=== PATIENT | male | born 1965 | race Caucasian/White ===

== ENCOUNTER 2016-05-20 21:18 | Observation (INO) ==
--- NOTE | 2016-05-20 21:42 | Emergency Department Note ---
ITrang Sierra, am scribing for, and in the presence of, Ivy Paul DO 21: 41. IHumberto Debra, DO, personally performed the services described in this documentation, ascribed by Shawnee Costello in my presence, and it is both accurate and complete . Arrival - Arrival Chief Complaint: Blood Pressure Stated Complaint: BRADYCARDIA, HYPOTENSION ED Nursing Triage Note: PT ARRIVES EMS FROM HOME, CAME IN FROM SHOPPING BECAME LIGHTHEADED, N/V, DIAPHORETIC. UPON EMS ARRIVAL HE WAS BRADYCARDIC AND HYPOTENSIVE. PT GIVEN ATROPINE 0.5 IV PER EMS AND VS ARE NOW WNL. PT DENIES CP OR ANY SYPTOM AT THE MOMENT, HAS NO HX/NO MEDS/NO DR. Mode of Arrival: Stretcher Limitations: No Limitations Source: Patient Time Seen by Provider: 05/20/16 21:34 - History of Present Illness HPI Narrative: Pt is a 51 y/o male that arrived at the ED via EMS with c/o nausea and diaphoretic that began earlier today. Pt states when he came in from hunting this morning he became really cold. He reports when he returned home he went to lay down and became nauseas and extremely cold. Pt states he tried 2 blankets to warm him up and standing by the heater but broke out in a cold sweat. Pt denies pain or flu sxs. He also reports he was fine yesterday. 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 Pt was bradycardic, hypotensive, and incompetent of urine when EMS arrived at pt's home. No other complaints/pain in ED. Onset (ago): hour(s) Consistency: constant Severity: mild Severity scale (1-10): 3 Review of System - Review of System 12 point system: reviewed and no additional remarkable complaints except as stated - Review of System Constitutional: Present: chills, diaphoresis Respiratory: Absent: cough Cardiovascular: Absent: chest pain Gastrointestinal: Present: nausea. Absent: abdominal pain Musculoskeletal: Absent: arm pain, back pain, leg pain, neck pain Skin: Absent: rash Neurological: Absent: headache Psychiatric: Absent: anxiety Medical,Surgical,& Family Hx - Social History Smoking Status: Current every day smoker Frequency of Alcohol Use: None Type of Drug Use: None Exam Vital Signs: Vital Signs Temperature 97.6 F 05/20/16 21:19 Pulse Rate 74 05/20/16 21:19 Respiratory Rate 18 05/20/16 21:19 Blood Pressure 119/62 05/20/16 21:19 O2 Sat by Pulse Oximetry 99 05/20/16 21:19 - General General appearance: alert, in no apparent distress - Head Head exam: Present: atraumatic, normocephalic - Eye Eye exam: Present: PERRL, EOMI - ENT ENT exam: Present: mucous membranes dry. Absent: mucous membranes moist - Neck Neck exam: Present: full ROM. Absent: tenderness - Chest Chest inspection: Present: symmetric chest wall rise. Absent: tenderness - Respiratory Respiratory exam: Present: normal lung sounds bilaterally. Absent: respiratory distress - Cardiovascular Cardiovascular exam: Present: regular rate, normal rhythm, normal heart sounds - Abdominal Exam Abdominal exam: Present: soft. Absent: tenderness - Extremities Exam Extremities exam: Present: full ROM. Absent: tenderness - Back Exam Back exam: Present: full ROM. Absent: tenderness - Neurological Exam Neurological exam: Present: alert, oriented X3, CN II-XII intact. Absent: motor sensory deficit - Psychiatric Psychiatric exam: Present: normal affect, normal mood - Skin Skin exam: Present: pallor Course Course Narrative: spoke with Dr Bolivar who will admit pt. Results - Labs CBC & BMP: 05/20/16 22:00 05/20/16 22:00 Lab Results: I have reviewed the patients labs Labs: Laboratory Tests 05/20/16 05/20/16 22:00 22:00 WBC 20.3 H Neut % (Auto) 85.9 H Lymph % (Auto) 5.0 L Neut # (Auto) 17.4 H Lymph # (Auto) 1.0 L [place] # (Auto) 1.5 H Glucose 133 H Albumin/Globulin Ratio 1.0 L - Diagnostic Findings Procedure: Chest x-ray: report reviewed by me (No acute abnormality.), CT: report reviewed by me (Head: Previous right-sided craniotomy with underlying mild temporoparietal enceohalomalacia. No definite acute process is seen intracranially.) Disposition Clinical Impression: Leukocytosis Case discussed with: patient Disposition: Still a Patient Condition: Stable Time of Disposition: 23:52
--- NOTE | 2016-05-20 21:56 | CT Report ---
CT of the head without contrast. Indication: Loss of consciousness. Incontinence. No prior studies. There has been a previous right craniotomy. Beneath the craniotomy defect, there is a small amount of temporoparietal encephalomalacia. There is no mass effect or midline shift. There is no evidence of acute hemorrhage. The calvarium is intact. There is a small amount of fluid in the left mastoid air cells. There is mild soft tissue prominence of the adenoidal tissue. Impression: Previous right-sided craniotomy with underlying mild temporoparietal encephalomalacia. No definite acute process is seen intracranially. PROCEDURE INTERPRETED AT [facility] DEPARTMENT OF RADIOLOGY Final Report Signed by: Dr. Sharda Charles
[2016-05-20 22:17] LABS: Basophils # 0.1 10*3/uL (0.0-0.2); Basophils % 0.5 % (0.0-0.8); Eosinophils # 0.1 10*3/uL (0.0-0.87); Eosinophils % 0.6 % (0.00-10.9); Hematocrit 43.8 VOL% (42.0-52.0); Hemoglobin 14.6 GM/DL (14.0-18.0); Immature Granulocytes % 0.8 %; Immature Granulocytes Absolute 0.16 #; Mean Corpuscular HGB Conc 33.3 GM/DL (32-36); Mean Corpuscular Hemoglobin 31 PG (27-34); Mean Corpuscular Volume 91.6 FL (87-102); Mean Platelet Volume 11.9 FL (9.6-12.0); Monocytes # 1.5 10*3/uL (0.11-0.8); Monocytes % 7.2 % (1.7-12.7); Neutrophils # 17.4 10*3/uL (1.4-7.4); Neutrophils % 85.9 % (38.7-73.9); Platelet Count 268 10*3/uL (130-400); Red Blood Count 4.78 10*6/uL (3.8-5.5); Red Cell Distribution Width 12.2 % (9.3-17.3); White Blood Count 20.3 10*3/uL (4.5-13.71)
[2016-05-20 22:21] LABS: Total Cells Counted 0
[2016-05-20 22:40] LABS: Alanine Aminotransferase 17 U/L (16-61); Albumin 3.8 G/DL (3.4-5.0); Alkaline Phosphatase 72 U/L (45-117); Aspartate Amino Transferase 10 U/L (0-37); Blood Urea Nitrogen 14 MG/DL (7-18); Calcium 8.9 MG/DL (8.5-10.1); Glucose 133 MG/DL (74-106); Potassium 4.3 MMOL/L (3.5-5.1); Sodium 143 MMOL/L (136-145); Total Protein 7.3 G/DL (6.4-8.3); Troponin I Only < 0.015 NG/ML (0.00-0.045)
--- NOTE | 2016-05-20 22:47 | XRay Report ---
Portable chest. Indication: Shortness of breath. Comparison: December 31, 2011. The heart is normal in size. The pulmonary vasculature is normal. There is no consolidation, pneumothorax, or pleural effusion. Impression: No acute abnormality. PROCEDURE INTERPRETED AT [facility] DEPARTMENT OF RADIOLOGY Final Report Signed by: Dr. Sharda Charles
[2016-05-20 23:23] LABS: Apearance,Urine CLOUDY (Clear); Bilirubin,Urine Negative (Negative); Blood, Urine Negative (Negative); Glucose,Urine (UA) Negative (Negative); Hyaline Casts,Urine 40 /LPF (0-3); Ketones,Urine 5 mg/dL (Negative); Mucus,Urine Many /LPF (Occasional); Nitrite,Urine Negative (Negative); Protein,Urine 100 MG/DL; RBC,Urine 4 /HPF (0-4); Squamous Epithelial Cell,Urine Occasional /HPF (0-10); Urine Color Amber (Yellow); Urine Specific Gravity 1.025 (1.001-1.035); Urine Urobilinogen < 2.0 EU/DL (0.2-1.0); WBC,Urine 3 /HPF (0-6)
[2016-05-20 23:28] LABS: Barbiturates Screen,Urine Negative (Negative); Benzodiazepines Screen,Urine Negative (Negative); Cannabinoid Screen,Urine Negative (Negative); Opiate Screen,Urine Negative (Negative); Phencyclidine Screen,Urine Negative (Negative)
[2016-05-20] MEDS ORDERED: cefTRIAXone 1,000 MG in SODIUM CHLORIDE 0.9% 100 ML IV STA (23:46)
[2016-05-20] MEDS ORDERED: SODIUM CHLORIDE 0.9% 100 ML IV ONE (23:48)
[2016-05-20] MEDS ORDERED: cefTRIAXone 1,000 MG VIAL ONE (23:48)
--- NOTE | 2016-05-21 00:22 | Hospitalist History & Physical ---
Assessment and Plan (1) near syncopal episode Status: Acute Current Visit: Yes (2) Gastroenteritis Status: Acute Current Visit: Yes (3) Leukocytosis Status: Acute Assessment and plan: Plan for this patient #1 admit the patient our service #2 IV fluids #3 recheck labs in the morning to see if the leukocytosis resolves #4 stool cultures if patient continues to have diarrhea #5 antibiotics in case it's infectious gastroenteritis #6 If the patient's feeling well in the morning should be able to be discharged home Current Visit: Yes History of Present Illness Chief complaint: nausea vomiting diarrhea and a near syncopal episode History of present illness: Mr. Knox is a 51 year old male with only past medical history significant for a craniotomy as a child was in his normal state of health till today. Patient reports that all his children have been sick with a stomach bug. He was out hunting this morning and went back home. He said he felt nauseated didn 't feel good he had nausea vomiting diarrhea. He was having cold sweats. He went by heater. And he got be real hot a and felt like he was burning up. He was dizzy. He was throwing up. He is called EMS when EMS arrived he was hypotensive and bradycardic he was given some atropine and he responded appropriately currently patient denies any symptoms at this moment. Patient denies loss of bowel or bladder continence. I was consulted to admit the patient. Medical,Surgical,& Family Hx - Medical History Medical History: noncontributory - Surgical History Additional Surgical History: Patient had a craniotomy as a child. He had a depressed skull fracture - Family History Family History: Reports;: Family Cancer Additional Family History: Lupus - Social History Smoking Status: Current every day smoker Frequency of Alcohol Use: None Type of Drug Use: None 12 point system: reviewed and no additional remarkable complaints except as stated Exam - Constitutional Vitals: Period Temp Pulse Resp BP Sys/Flowers Pulse Ox Last 24 Hr 97.6 F 74 18 119/62 99 - General General appearance: alert, in no apparent distress - Head Head exam: Present: atraumatic, normocephalic - Eye Eye exam: Present: PERRL, EOMI - ENT ENT exam: Present: mucous membranes dry. Absent: mucous membranes moist - Neck Neck exam: Present: full ROM. Absent: tenderness - Chest Chest inspection: Present: symmetric chest wall rise. Absent: tenderness - Respiratory Respiratory exam: Present: normal lung sounds bilaterally. Absent: respiratory distress - Cardiovascular Cardiovascular exam: Present: regular rate, normal rhythm, normal heart sounds - Abdominal Exam Abdominal exam: Present: soft. Absent: tenderness - Extremities Exam Extremities exam: Present: full ROM. Absent: tenderness - Back Exam Back exam: Present: full ROM. Absent: tenderness - Neurological Exam Neurological exam: Present: alert, oriented X3, CN II-XII intact. Absent: motor sensory deficit - Psychiatric Psychiatric exam: Present: normal affect, normal mood - Skin Skin exam: Present: pallor Results - Labs CBC & BMP: 05/20/16 22:00 05/20/16 22:00 Quality Measures - Stroke Onset of Symptoms Date: 05/20/16 Onset of Symptoms Time: 20:00
[2016-05-21] MEDS ORDERED: ACETAMINOPHEN 325 MG TABLET PO PRN (00:24)
[2016-05-21] MEDS ORDERED: ONDANSETRON 4 MG/2 ML VIAL IV PRN (00:24)
[2016-05-21] MEDS ORDERED: LEVOFLOXACIN INJ 500 MG in PREMIX 1 EACH IV SCH (01:00)
[2016-05-21] MEDS: SODIUM CHLORIDE 0.45% 1,000 ML IV SCH ×2 (02:32→11:14)
[2016-05-21 07:41] LABS: Basophils # 0.1 10*3/uL (0.0-0.2); Basophils % 0.7 % (0.0-0.8); Eosinophils # 0.1 10*3/uL (0.0-0.87); Eosinophils % 0.7 % (0.00-10.9); Hematocrit 43.1 VOL% (42.0-52.0); Hemoglobin 14.2 GM/DL (14.0-18.0); Immature Granulocytes % 0.6 %; Immature Granulocytes Absolute 0.07 #; Lymphocytes # 1.5 10*3/uL (1.4-4.0); Lymphocytes % 12.4 % (21.2-54.2); Mean Corpuscular HGB Conc 32.9 GM/DL (32-36); Mean Corpuscular Hemoglobin 30 PG (27-34); Mean Corpuscular Volume 92.3 FL (87-102); Mean Platelet Volume 12.1 FL (9.6-12.0); Monocytes % 7.9 % (1.7-12.7); Neutrophils # 9.5 10*3/uL (1.4-7.4); Neutrophils % 77.7 % (38.7-73.9); Platelet Count 247 10*3/uL (130-400); Red Blood Count 4.67 10*6/uL (3.8-5.5); Red Cell Distribution Width 12.4 % (9.3-17.3); White Blood Count 12.2 10*3/uL (4.5-13.71)
[2016-05-21 08:03] VITALS: BP 113/62
[2016-05-21 08:07] LABS: Calcium 8.8 MG/DL (8.5-10.1); Osmolality,Calculated 283.1 MOS/KG (273-304); Potassium 4.3 MMOL/L (3.5-5.1)
[2016-05-21] MEDS ORDERED: PANTOPRAZOLE 40 MG TABLET PO SCH (09:00)
--- NOTE | 2016-05-21 09:09 | EKG Report ---
Stationary ECG Study 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
--- NOTE | 2016-05-21 09:48 | Discharge Summary ---
Hospital Course - Hospital Course Hospital Course: 51-year-old white male admitted overnight with nausea vomiting and diarrhea with a diagnosis of gastroenteritis. Patient is receiving IV fluid hydration. He had a leukocytosis which has resolved with IV fluid administration. He feels much better this morning. He is asking to go home. To be discharged later today after completion of his IV fluid. No acute events overnight. He denies any further nausea vomiting or diarrhea. - Time spent with patient Time with patient DS: Less than 30 minutes Diagnosis - Discharge Diagnosis (1) Leukocytosis Status: Acute (2) near syncopal episode Status: Acute (3) Gastroenteritis Status: Acute Discharge Plan - Discharge Data Disposition: Disch To Home/Self Care Condition at Discharge: Stable Discharge Diet: advance to your usual diet Activity: resume usual activities as tolerated Contact your physician if you experience:: fever over 101, Difficulty voiding, Nausea/Vomiting, pain uncontrolled by pain medications - Discharge Medications New Promethazine Tab [Phenergan Tab] 25 mg PO Q4H #20 tablet - Follow Up or Referral - Forms/Instructions Exam - Constitutional Vitals: Period Temp Pulse Resp BP Sys/Flowers Pulse Ox Last 24 Hr 97.2 F-98.9 F 72-86 18-20 113-123/53-76 89-97 General appearance: no acute distress - Head Head exam: Present: normal inspection, normocephalic - Eye Eye exam: Present: EOMI Pupils: Present: DEBORAH - Respiratory Respiratory exam: Present: clear to auscultation bilaterally - Cardiovascular Cardiovascular exam: Present: regular rate and rhythm - GI/Abdominal GI/Abdominal exam: Present: normal bowel sounds, soft - Extremities Exam Extremities exam: Absent: edema - Neurological Exam Neurological exam: Present: alert, oriented X3 - Psychiatric Psychiatric exam: Present: normal affect, normal mood - Skin Skin exam: Present: normal color, warm, dry Discharge Results Procedures and tests throughout hospitalization: Pending Orders 05/21/16 00:32 C. Diff Toxins A & B Routine Stool Culture Routine Stool for WBCs Routine Labs on day of discharge: Labs from last 24 hours 05/21/16 05/21/16 07:23 07:23 WBC 12.2 D RBC 4.67 Hgb 14.2 Hct 43.1 MCV 92.3 MCH 30 MCHC 32.9 RDW 12.4 Plt Count 247 MPV 12.1 H Neut % (Auto) 77.7 H Lymph % (Auto) 12.4 L [place] % (Auto) 7.9 Eos % (Auto) 0.7 Baso % (Auto) 0.7 Neut # (Auto) 9.5 H Lymph # (Auto) 1.5 [place] # (Auto) 1.0 H Eos # (Auto) 0.1 Baso # (Auto) 0.1 Immature Gran % 0.6 Nucleated RBC % 0.0 Immature Gran # 0.07 Nucleated RBCs # 0.00 Sodium 142 Potassium 4.3 Chloride 108 H Carbon Dioxide 25 Anion Gap 13.3 BUN 14 Creatinine 0.80 GFR Calculation 102 BUN/Creatinine Ratio 17.00 Glucose 98 Calculated Osmolality 283.1 Calcium 8.8 DS: Provider Date of admission: 05/21/16 00:24 Primary care physician: . No PCP Attending physician on admission: Ramiro Steen MD Discharging clinician: Ramiro Steen MD Expected date of discharge: 05/21/16
== END 2016-05-21 12:15 | disposition home or self-care (01) ==
LOC: EDUNIT# → EDBD → N.ED 21:18 → N.EDINP 21:18 → N.TELEN 05-21 01:20
PROVIDERS: ADMIT Family Medicine; ATTEND Family Medicine